=== PATIENT | male | born 1990 | race Caucasian/White ===

== ENCOUNTER 2016-04-26 20:06 | Emergency (ER) | payer SELFPAY ==
[2016-04-26 21:54] VITALS: BP 140/68
== END 2016-04-26 21:54 | disposition home or self-care (01) ==
LOC: ED 20:06
DX: S01.81XA Laceration without foreign body of other part of head, initial encounter (principal); W45.8XXA Other foreign body or object entering through skin, initial encounter; Y93.89 Activity, other specified; Y99.8 Other external cause status; Y92.89 Other specified places as the place of occurrence of the external cause
CPT/HCPCS: J2001